=== PATIENT | female | born 1945 | race Asian ===

== ENCOUNTER 2017-02-25 10:34 | Observation (INO) | payer MEDICARE, OTHER ==
[~2017-02-25] VITALS: Ht 157.5 cm; Wt 56.7 kg
[~2017-02-25 10:34] MED LIST: AMLO10TA4 PO; ASPI-1159 PO; ATOR20TA65 PO; CALC667T5 PO; FERR-63 PO; FURO80TA3 PO; GLIP5TAB12 PO; HYDR-4135 PO; PROT40 PO; SENN1TAB86 PO
[2017-02-25] MEDS ORDERED: SODIUM CHLORIDE 0.9% 500 ML IV ONE (11:12)
[2017-02-25 11:51] LABS: BASOPHILS % 0.9 % (0.0-2.0); EOSINOPHILS % 0.9 % (0.0-5.0); HEMATOCRIT. 34.5 % (36.0-48.0); MEAN CORPUSCULAR HEMOGLOBIN 28.1 pg (28.0-32.0); MEAN CORPUSCULAR VOLUME 88.4 fL (81.0-99.0); MEAN PLATELET VOLUME 10.6 fl (7.4-10.4); MONOCYTES % 7.6 % (2.0-8.0); NEUTROPHILS % 77.6 % (40.0-76.0); PLATELET 204 x1000/uL (130-400); RED BLOOD CELL COUNT 3.91 mill/uL (4.2-5.4); RED CELL DISTRIBUTION WIDTH 14.5 % (11.6-14.6)
[2017-02-25 12:00] LABS: PARTIAL THROMBOPLASTIN TIME 28.9 sec (24.0-34.0); PROTHROMBIN TIME 10.1 sec
[2017-02-25 12:09] LABS: CARBON DIOXIDE 24 mEq/L (21-32); CHLORIDE 102 mEq/L (98-107); TROPONIN I 0.05 ng/mL (0.00-0.04)
[2017-02-25 14:30] VITALS: BP 190/121
[2017-02-25] MEDS ORDERED: IPRATROPIUM/ALBUTEROL 0.5-3(2.5)MG/3ML NEB INH PRN (14:30)
[2017-02-25] MEDS ORDERED: ACETAMINOPHEN 325MG TABLET PO PRN (14:30)
[2017-02-25] MEDS ORDERED: DEXTROSE 50% WATER 50ML SYRINGE IV PRN (14:30)
[2017-02-25] MEDS ORDERED: HYDROCODONE/ACETAMINOPHEN 5/325MG TABLET PO PRN (14:30)
[2017-02-25] MEDS ORDERED: ENOXAPARIN 40MG/0.4ML SYR SUBCUT SCH (14:30)
[2017-02-25] MEDS ORDERED: ONDANSETRON HCL 4MG/2ML VIAL IV PRN (14:30)
[2017-02-25] MEDS: ENOXAPARIN 30MG/0.3ML SYR SUBCUT SCH (15:00)
[2017-02-25 16:05] VITALS: BP 158/81
[2017-02-25] MEDS: BLOOD SUGAR DIAGNOSTIC STRIP TEST SCH ×2 (17:56→20:24)
[2017-02-25] MEDS: INSULIN LISPRO 100 UNITS/ML SUBCUT SCH ×2 (17:56→21:12)
[2017-02-25] MEDS: FOLIC ACID/VITAMIN B COMP W-C TABLET PO SCH (18:10)
[2017-02-25] MEDS: CALCIUM ACETATE 667MG CAPSULE PO SCH (18:10)
[2017-02-25 20:00] VITALS: BP 126/61
[2017-02-25 21:28] LABS: TROPONIN I 0.08 ng/mL (0.00-0.04)
[2017-02-26] VITALS (9 sets, daily range): BP systolic 121–191; BP diastolic 57–87
[2017-02-26] MEDS: CLONIDINE 0.1MG TABLET PO PRN ×2 (04:47→08:32)
[2017-02-26 06:49] LABS: T4 FREE 0.93 ng/dL (0.76-1.46); TROPONIN I 0.09 ng/mL (0.00-0.04)
[2017-02-26 07:20] LABS: HEMOGLOBIN. 10.3 g/dL (12.0-16.0); LYMPHOCYTES % 28.4 % (20.0-50.0); MEAN CORPUSCULAR HEMOGLOBIN 28.2 pg (28.0-32.0); MEAN PLATELET VOLUME 9.4 fl (7.4-10.4); NEUTROPHILS % 57.6 % (40.0-76.0); PLATELET 157 x1000/uL (130-400); RED BLOOD CELL COUNT 3.64 mill/uL (4.2-5.4); RED CELL DISTRIBUTION WIDTH 14.3 % (11.6-14.6)
[2017-02-26] MEDS: BLOOD SUGAR DIAGNOSTIC STRIP TEST SCH ×3 (07:40→17:48)
[2017-02-26] MEDS: INSULIN LISPRO 100 UNITS/ML SUBCUT SCH ×3 (07:54→17:48)
[2017-02-26] MEDS: FOLIC ACID/VITAMIN B COMP W-C TABLET PO SCH (08:32)
[2017-02-26] MEDS: CALCIUM ACETATE 667MG CAPSULE PO SCH ×3 (08:32→18:21)
[2017-02-26] MEDS ORDERED: HYDRALAZINE HCL 50MG TABLET PO PRN (12:15)
[2017-02-26] MEDS: ENOXAPARIN 30MG/0.3ML SYR SUBCUT SCH (15:00)
== END 2017-02-26 22:08 | disposition home or self-care (01) ==
LOC: EDSEX 10:35 → ER 10:35 → INTOOBSV 12:47 → 7WST 12:47 → EDBEDREQ 12:48 → ENRESERV 13:23
PROVIDERS: ADMIT Internal Medicine; ATTEND Internal Medicine
DX: I12.0 Hypertensive chronic kidney disease with stage 5 chronic kidney disease or end stage renal disease (principal); N18.6 End stage renal disease; I95.9 Hypotension, unspecified; D64.9 Anemia, unspecified; E11.22 Type 2 diabetes mellitus with diabetic chronic kidney disease; I25.10 Atherosclerotic heart disease of native coronary artery without angina pectoris; E78.5 Hyperlipidemia, unspecified; Z99.2 Dependence on renal dialysis; Z95.5 Presence of coronary angioplasty implant and graft; Z82.49 Family history of ischemic heart disease and other diseases of the circulatory system; Z79.899 Other long term (current) drug therapy; Z79.84 Long term (current) use of oral hypoglycemic drugs
CPT/HCPCS: 36415; 70450; 71010; 80048; 80053; 80061; 82550; 82962; 83605; 84439; 84443; 84484; 85025; 85610; 85730; 87040; 93005; 93880; 96360; 96372; 99285; G0378; J1815; J7040

== ENCOUNTER 2019-04-20 16:45 | Emergency (ER) | payer OTHER ==
[~2019-04-20] VITALS: Ht 147.3 cm; Wt 57.0 kg
[~2019-04-20 16:45] MED LIST changes: -ASPI-1159 PO; +ASPI-1393 PO; -CALC667T5 PO; +CALC667T6 PO
[2019-04-20 17:53] LABS: BASOPHILS % 1.1 % (0.0-2.0); EOSINOPHILS % 1.2 % (0.0-5.0); HEMATOCRIT. 34.8 % (36.0-48.0); HEMOGLOBIN. 11.2 g/dL (12.0-16.0); LYMPHOCYTES % 20.6 % (20.0-50.0); MEAN CORPUSCULAR VOLUME 89.8 fL (81.0-99.0); MEAN PLATELET VOLUME 9.4 fl (7.4-10.4); MONOCYTES % 11.9 % (2.0-8.0); NEUTROPHILS % 65.2 % (40.0-76.0); PLATELET 179 x1000/uL (130-400); RED BLOOD CELL COUNT 3.87 mill/uL (4.2-5.4); RED CELL DISTRIBUTION WIDTH 18.5 % (11.6-14.6)
[2019-04-20 17:56] LABS: CHLORIDE 102 mEq/L (98-107)
[2019-04-20 20:00] VITALS: BP 172/70
== END 2019-04-20 20:00 | disposition home or self-care (01) ==
LOC: ER 16:47
DX: S09.90XA Unspecified injury of head, initial encounter (principal); R55 Syncope and collapse; D64.9 Anemia, unspecified; E11.65 Type 2 diabetes mellitus with hyperglycemia; R79.89 Other specified abnormal findings of blood chemistry; E11.22 Type 2 diabetes mellitus with diabetic chronic kidney disease; I12.0 Hypertensive chronic kidney disease with stage 5 chronic kidney disease or end stage renal disease; N18.6 End stage renal disease; Z99.2 Dependence on renal dialysis; Z79.84 Long term (current) use of oral hypoglycemic drugs; Z79.899 Other long term (current) drug therapy; Z98.890 Other specified postprocedural states; W18.30XA Fall on same level, unspecified, initial encounter; Y93.89 Activity, other specified; Y92.89 Other specified places as the place of occurrence of the external cause; Y99.8 Other external cause status
CPT/HCPCS: 36415; 71045; 83880; 84484; 93005; 99284

== ENCOUNTER 2022-01-10 13:12 | Emergency (ER) | payer OTHER ==
[~2022-01-10] VITALS: Ht 162.6 cm; Wt 54.0 kg
[~2022-01-10 13:12] MED LIST changes: -ASPI-1393 PO; +ASPI-1497 PO; -CALC667T6 PO
[2022-01-10 15:19] LABS: BASOPHILS % 0.7 % (0.0-2.0); EOSINOPHILS % 0.7 % (0.0-5.0); HEMOGLOBIN. 10.3 g/dL (12.0-16.0); LYMPHOCYTES % 25.5 % (20.0-50.0); MEAN CORPUSCULAR HEMOGLOBIN 27.6 pg (28.0-32.0); MEAN CORPUSCULAR VOLUME 85.7 fL (81.0-99.0); MEAN PLATELET VOLUME 9.7 fl (7.4-10.4); MONOCYTES % 11.3 % (2.0-8.0); NEUTROPHILS % 61.8 % (40.0-76.0); PLATELET 132 x1000/uL (130-400); RED BLOOD CELL COUNT 3.74 mill/uL (4.2-5.4); RED CELL DISTRIBUTION WIDTH 16.5 % (11.6-14.6)
[2022-01-10 15:24] LABS: CHLORIDE 110 mEq/L (98-107)
[2022-01-10] MEDS ORDERED: AMLODIPINE 10MG TABLET PO ONE (16:00)
[2022-01-10 21:10] VITALS: BP 118/60
== END 2022-01-10 21:15 | disposition home or self-care (01) ==
LOC: ER 13:12
DX: R55 Syncope and collapse (principal); I95.3 Hypotension of hemodialysis; R51.9 Headache, unspecified; I12.0 Hypertensive chronic kidney disease with stage 5 chronic kidney disease or end stage renal disease; E11.22 Type 2 diabetes mellitus with diabetic chronic kidney disease; N18.6 End stage renal disease; D64.9 Anemia, unspecified; Z99.2 Dependence on renal dialysis; Z79.899 Other long term (current) drug therapy; Z79.82 Long term (current) use of aspirin; Z95.0 Presence of cardiac pacemaker
CPT/HCPCS: 36415; 71045; 80053; 83605; 84484; 85025; 99285

== ENCOUNTER 2022-10-10 13:09 | Inpatient (IN) | payer OTHER ==
[~2022-10-10] VITALS: Ht 157.5 cm; Wt 54.4 kg
[2022-10-10 15:18] LABS: BASOPHILS % 0.7 % (0.0-2.0); EOSINOPHILS % 0.3 % (0.0-5.0); HEMATOCRIT. 37.4 % (36.0-48.0); HEMOGLOBIN. 11.7 g/dL (12.0-16.0); LYMPHOCYTES % 13.8 % (20.0-50.0); MEAN CORPUSCULAR HEMOGLOBIN 27.7 pg (28.0-32.0); MEAN CORPUSCULAR VOLUME 88.7 fL (81.0-99.0); MEAN PLATELET VOLUME 9.8 fl (7.4-10.4); MONOCYTES % 12.5 % (2.0-8.0); NEUTROPHILS % 72.7 % (40.0-76.0); PLATELET 139 x1000/uL (130-400); RED BLOOD CELL COUNT 4.22 mill/uL (4.2-5.4); RED CELL DISTRIBUTION WIDTH 16.1 % (11.6-14.6)
[2022-10-10 15:25] LABS: CHLORIDE 108 mEq/L (98-107)
[2022-10-10 15:28] LABS: INR 0.9; PARTIAL THROMBOPLASTIN TIME 36.4 sec (23.4-31.0); PROTHROMBIN TIME 10.1 sec (9.6-11.0)
[2022-10-10] MEDS ORDERED: SODIUM POLYSTYRENE SULFONATE 15 G/60 ML BOT PO NR (16:15)
[2022-10-10] MEDS ORDERED: FUROSEMIDE 100MG/10ML VIAL IV NR (16:15)
[2022-10-10] MEDS ORDERED: DEXTROSE 50% WATER 50ML SYRINGE IV NR (16:15)
[2022-10-10] MEDS ORDERED: INSULIN REGULAR (HUMULIN R) 300UNITS/3ML VIAL IV NR (16:15)
[2022-10-10] MEDS ORDERED: SODIUM BICARBONATE 8.4% 1 MEQ/ML 50ML SYR IV NR (16:15)
[2022-10-10] MEDS ORDERED: CALCIUM GLUCONATE 100MG/ML 10ML VIAL IV NR (16:45)
[2022-10-10 18:40] LABS: HEPATITIS B SURFACE ANTIGEN NEGATIVE
[2022-10-10 19:00] VITALS: BP_SYST 94; BP_DIAS 46; BP_DIAS 55
[2022-10-10 20:00] VITALS: BP 90/45
[2022-10-10 20:56] VITALS: BP 86/45
[2022-10-10 22:01] VITALS: BP 111/55
[2022-10-11] VITALS (21 sets, daily range): BP systolic 93–171; BP diastolic 53–89
[2022-10-11] MEDS ORDERED: ONDANSETRON HCL 4MG/2ML INJ IV PRN (08:30)
[2022-10-11] MEDS ORDERED: ACETAMINOPHEN 325MG TABLET PO PRN (08:30)
[2022-10-11 08:56] LABS: BASOPHILS % 0.6 % (0.0-2.0); EOSINOPHILS % 0.5 % (0.0-5.0); HEMATOCRIT. 36.4 % (36.0-48.0); LYMPHOCYTES % 10.8 % (20.0-50.0); MEAN CORPUSCULAR HEMOGLOBIN 28.1 pg (28.0-32.0); MEAN PLATELET VOLUME 9.8 fl (7.4-10.4); MONOCYTES % 9.6 % (2.0-8.0); NEUTROPHILS % 78.5 % (40.0-76.0); PLATELET 140 x1000/uL (130-400); RED BLOOD CELL COUNT 4.28 mill/uL (4.2-5.4); RED CELL DISTRIBUTION WIDTH 16.2 % (11.6-14.6)
[2022-10-11] MEDS ORDERED: NIFEDIPINE XL 60MG TAB PO SCH (09:00)
[2022-10-11] MEDS ORDERED: ALTEPLASE 2MG/VIAL ITC NR (09:30)
[2022-10-11] MEDS ORDERED: FENTANYL CITRATE/PF 50MCG/ML 2ML VIAL ONE (09:53)
[2022-10-11] MEDS ORDERED: FENTANYL CITRATE/PF 50MCG/ML 2ML VIAL IV NR (09:53)
[2022-10-11] MEDS ORDERED: CEFAZOLIN 1000MG PREMIX 50 ML IV NR (10:00)
[2022-10-11] MEDS ORDERED: LIDOCAINE HCL 1% 10 MG/ML 10ML VIAL ONE (10:44)
[2022-10-11] MEDS ORDERED: HEPARIN 1000 UNITS/ML 10ML ONE (10:44)
[2022-10-11] MEDS ORDERED: IOHEXOL-300 100 ML BOTTLE ONE (10:44)
[2022-10-12] VITALS (15 sets, daily range): BP systolic 106–158; BP diastolic 50–80
[2022-10-12 16:58] LABS: BASOPHILS % 0.9 % (0.0-2.0); HEMATOCRIT. 33.1 % (36.0-48.0); HEMOGLOBIN. 10.8 g/dL (12.0-16.0); LYMPHOCYTES % 18.5 % (20.0-50.0); MEAN CORPUSCULAR VOLUME 85.8 fL (81.0-99.0); MEAN PLATELET VOLUME 10.2 fl (7.4-10.4); MONOCYTES % 14.4 % (2.0-8.0); NEUTROPHILS % 65.2 % (40.0-76.0); PLATELET 147 x1000/uL (130-400); RED BLOOD CELL COUNT 3.86 mill/uL (4.2-5.4); RED CELL DISTRIBUTION WIDTH 16.2 % (11.6-14.6)
== END 2022-10-12 22:15 | disposition home or self-care (01) | DRG 252 ==
LOC: ER 13:09 → MICUSO 18:16 → EDBEDREQ 18:19 → EDBEDREQTM 18:19 → 7EST 10-11 10:16
PROVIDERS: ADMIT Internal Medicine; ATTEND Internal Medicine
PROC: 06HY33Z Insertion of Infusion Device into Lower Vein, Percutaneous Approach (ICD-10-PCS; principal; 2022-10-10)
PROC: B54BZZA Ultrasonography of Right Lower Extremity Veins, Guidance (ICD-10-PCS; 2022-10-10)
PROC: 5A1D70Z Performance of Urinary Filtration, Intermittent, Less than 6 Hours Per Day (ICD-10-PCS; 2022-10-10)
PROC: 03783ZZ Dilation of Left Brachial Artery, Percutaneous Approach (ICD-10-PCS; 2022-10-11)
PROC: 057F3ZZ Dilation of Left Cephalic Vein, Percutaneous Approach (ICD-10-PCS; 2022-10-11)
PROC: B51W1ZZ Fluoroscopy of Dialysis Shunt/Fistula using Low Osmolar Contrast (ICD-10-PCS; 2022-10-11)
PROC: B5181ZZ Fluoroscopy of Superior Vena Cava using Low Osmolar Contrast (ICD-10-PCS; 2022-10-11)
PROC: 5A1D70Z Performance of Urinary Filtration, Intermittent, Less than 6 Hours Per Day (ICD-10-PCS; 2022-10-12)
DX: T82.868A Thrombosis due to vascular prosthetic devices, implants and grafts, initial encounter (principal); N18.6 End stage renal disease; E44.1 Mild protein-calorie malnutrition; E87.20 Acidosis, unspecified; E87.1 Hypo-osmolality and hyponatremia; J98.11 Atelectasis; I12.0 Hypertensive chronic kidney disease with stage 5 chronic kidney disease or end stage renal disease; G89.29 Other chronic pain; E87.5 Hyperkalemia; R79.89 Other specified abnormal findings of blood chemistry; Z20.822 Contact with and (suspected) exposure to COVID-19; E11.22 Type 2 diabetes mellitus with diabetic chronic kidney disease; Z99.2 Dependence on renal dialysis; Z95.0 Presence of cardiac pacemaker; Z91.15 Patient's noncompliance with renal dialysis; Z79.899 Other long term (current) drug therapy; Z68.21 Body mass index [BMI] 21.0-21.9, adult; Y71.2 Prosthetic and other implants, materials and accessory cardiovascular devices associated with adverse incidents; Y92.89 Other specified places as the place of occurrence of the external cause
CPT/HCPCS: 36415; 36905; 71045; 76937; 80048; 80053; 82962; 85025; 86705; 86709; 86803; 87340; 87426; 90935; 93005; 99152; 99153; 99291; C1725; C1766; C1769; C1893; J0610; J0690; J1644; J1815; J1940; J2997; J3010; J3490; Q9967; G0500

== ENCOUNTER 2024-02-24 14:27 | Inpatient (IN) | payer OTHER, MEDICARE ==
[~2024-02-24] VITALS: Ht 157.5 cm; Wt 63.0 kg
[~2024-02-24 14:27] MED LIST changes: -GLIP5TAB12 PO; +GLIP5TAB22 PO; -HYDR-4135 PO; +HYDR50TA40 PO
[2024-02-24] MEDS: CLONIDINE 0.2MG TABLET PO ONE (16:30)
[2024-02-24 16:43] LABS: DIFFERENTIAL COMMENT 0; EOSINOPHILS % 1.2 % (0.0-5.0); HEMATOCRIT. 27.4 % (36.0-48.0); HEMOGLOBIN. 8.9 g/dL (12.0-16.0); MEAN CORPUSCULAR HEMOGLOBIN 28.2 pg (28.0-32.0); MEAN CORPUSCULAR HGB CONC 32.5 g/dL (31.0-37.0); MEAN CORPUSCULAR VOLUME 86.7 fL (81.0-99.0); MEAN PLATELET VOLUME 8.3 fl (7.4-10.4); NEUTROPHILS % 70.8 % (40.0-76.0); PLATELET 203 x1000/uL (130-400); RED BLOOD CELL COUNT 3.17 mill/uL (4.2-5.4); RED CELL DISTRIBUTION WIDTH 16.4 % (11.6-14.6); WHITE BLOOD COUNT 4.8 x1000/uL (4.5-11.0)
[2024-02-24 16:53] LABS: POTASSIUM 3.9 mEq/L (3.5-5.1)
[2024-02-24 16:56] LABS: INR 0.9; PARTIAL THROMBOPLASTIN TIME 29.3 sec (23.4-31.0); PROTHROMBIN TIME 10.4 sec (9.6-11.0)
[2024-02-24 17:02] LABS: CREATININE 2.7 mg/dL (0.6-1.0)
[2024-02-25] VITALS (8 sets, daily range): BP systolic 99–162; BP diastolic 38–74; PULSE 64–92; RESP 16–20; TEMP 97.2–100.6
[2024-02-25] MEDS ORDERED: CALC667C MT (08:54)
[2024-02-25 10:07] LABS: HEMATOCRIT 24.7 % (36.0-48.0); HEMOGLOBIN 8.1 g/dL (12.0-16.0); MEAN CORPUSCULAR HEMOGLOBIN 28.3 pg (28.0-32.0); MEAN CORPUSCULAR VOLUME 85.6 fL (81.0-99.0); PLATELET 183 x1000/uL (130-400); RED BLOOD CELL COUNT 2.88 mill/uL (4.2-5.4)
[2024-02-25 10:19] LABS: CARBON DIOXIDE 31 mEq/L (21-32); CHLORIDE 99 mEq/L (98-107); POTASSIUM 4.2 mEq/L (3.5-5.1); SODIUM 136 mEq/L (136-145)
[2024-02-25 10:20] LABS: CALCIUM 8.2 mg/dL (8.7-10.4)
[2024-02-25 10:25] LABS: GLUCOSE 104 mg/dL (70-105); UREA NITROGEN BLOOD 22 mg/dL (9-23)
[2024-02-25 10:26] LABS: ALANINE AMINOTRANSFERASE < 7 IU/L (10-49); ASPARTATE AMINOTRANSFERASE 17 IU/L (<34)
[2024-02-25 10:27] LABS: ALBUMIN 3.5 g/dL (3.2-4.8); BILIRUBIN TOTAL 0.3 mg/dL (0.1-1.0); PROTEIN TOTAL 6.3 g/dL (6.0-8.3)
[2024-02-25 10:40] LABS: CREATININE 4.3 mg/dL (0.6-1.0)
[2024-02-25] MEDS ORDERED: DEXTROSE 50% WATER 50ML SYRINGE IV PRN (12:15)
[2024-02-25] MEDS ORDERED: ACETAMINOPHEN 325MG TABLET PO PRN ×2 (12:15)
[2024-02-25] MEDS ORDERED: IPRATROPIUM/ALBUTEROL 0.5-3(2.5)MG/3ML NEB HHN PRN (12:15)
[2024-02-25] MEDS ORDERED: CLONIDINE 0.1MG TABLET PO PRN (12:15)
[2024-02-25] MEDS ORDERED: DOCUSATE SODIUM 100MG CAPSULE PO PRN (12:15)
[2024-02-25] MEDS ORDERED: ONDANSETRON HCL 4MG/2ML INJ IV PRN (12:15)
[2024-02-25] MEDS ORDERED: HYDRALAZINE 20MG/ML VIAL IV PRN (12:15)
[2024-02-25] MEDS: HYDRALAZINE HCL 50MG TABLET PO SCH (13:29)
[2024-02-25] MEDS: BLOOD SUGAR DIAGNOSTIC STRIP TEST SCH (15:57)
[2024-02-25] MEDS: INSULIN LISPRO 100 UNITS/ML SUBCUT SCH (17:10)
[2024-02-25 17:20] LABS: CREATINE KINASE MB FRACTION 1.7 ng/mL (0.5-3.6)
[2024-02-25 17:21] LABS: CREATINE KINASE 47 IU/L (34-145)
[2024-02-25 17:29] LABS: TROPONIN I HIGH SENSITIVITY 47 ng/L (3.0-34)
[2024-02-25 17:37] LABS: HEPATITIS B SURFACE ANTIGEN NEGATIVE (Negative)
[2024-02-25 17:57] LABS: HEPATITIS A AB IGM NEGATIVE (Negative)
[2024-02-25 17:58] LABS: HEPATITIS B CORE AB IGM NEGATIVE (Negative); HEPATITIS C AB NON REACTIVE (Neg) (Negative)
[2024-02-25] MEDS: EPOETIN ALFA 4000UNITS/ML VIAL SUBCUT SCH (21:00)
[2024-02-25] MEDS ORDERED: EPOETIN ALFA-EPBX 4,000 UNIT/ML VIAL SUBCUT SCH (21:00)
[2024-02-26] VITALS (21 sets, daily range): BP systolic 96–189; BP diastolic 44–66; PULSE 66–82; RESP 14–18; TEMP 97–98; O2SAT 97
[2024-02-26 07:16] LABS: HEMATOCRIT. 23.8 % (36.0-48.0); HEMOGLOBIN. 7.9 g/dL (12.0-16.0); MEAN CORPUSCULAR HEMOGLOBIN 28.5 pg (28.0-32.0); MEAN CORPUSCULAR VOLUME 86.3 fL (81.0-99.0); MEAN PLATELET VOLUME 8.9 fl (7.4-10.4); PLATELET 185 x1000/uL (130-400); RED BLOOD CELL COUNT 2.76 mill/uL (4.2-5.4); RED CELL DISTRIBUTION WIDTH 17.3 % (11.6-14.6); WHITE BLOOD COUNT 2.9 x1000/uL (4.5-11.0)
[2024-02-26] MEDS ORDERED: LIDOCAINE HCL 1% 10 MG/ML 10ML VIAL ONE (07:21)
[2024-02-26] MEDS ORDERED: IOHEXOL-300 100 ML BOTTLE ONE (07:22)
[2024-02-26 07:35] LABS: POTASSIUM 4.7 mEq/L (3.5-5.1)
[2024-02-26 07:36] LABS: CALCIUM 7.8 mg/dL (8.7-10.4)
[2024-02-26 07:53] LABS: CREATININE 5.7 mg/dL (0.6-1.0)
[2024-02-26 07:55] LABS: DIFFERENTIAL COMMENT 1
[2024-02-26] MEDS ORDERED: FENTANYL CITRATE/PF 50MCG/ML 2ML VIAL ONE (07:58)
[2024-02-26] MEDS: FUROSEMIDE 20MG TABLET PO SCH (09:18)
[2024-02-26 09:57] LABS: ANISOCYTOSIS 1+; HYPOCHROMASIA 2+
[2024-02-26 16:30] LABS: PLATELET ESTIMATE NORMAL
== END 2024-02-26 19:48 | disposition home or self-care (01) | DRG 314 ==
LOC: ER 14:27 → EDBEDREQ 17:18 → 3WST 18:31 → EDBEDREQ 18:43 → EDBEDREQTM 18:43 → 5WST 23:33 → 7EST 23:52
PROVIDERS: ADMIT Internal Medicine; ATTEND Internal Medicine
PROC: B51W1ZZ Fluoroscopy of Dialysis Shunt/Fistula using Low Osmolar Contrast (ICD-10-PCS; principal; 2024-02-26)
PROC: B51N1ZZ Fluoroscopy of Left Upper Extremity Veins using Low Osmolar Contrast (ICD-10-PCS; 2024-02-26)
PROC: B5171ZZ Fluoroscopy of Left Subclavian Vein using Low Osmolar Contrast (ICD-10-PCS; 2024-02-26)
PROC: B31J1ZZ Fluoroscopy of Left Upper Extremity Arteries using Low Osmolar Contrast (ICD-10-PCS; 2024-02-26)
PROC: 5A1D70Z Performance of Urinary Filtration, Intermittent, Less than 6 Hours Per Day (ICD-10-PCS; 2024-02-26)
DX: T82.838A Hemorrhage due to vascular prosthetic devices, implants and grafts, initial encounter (principal); N18.6 End stage renal disease; I12.0 Hypertensive chronic kidney disease with stage 5 chronic kidney disease or end stage renal disease; D62 Acute posthemorrhagic anemia; J98.11 Atelectasis; Z95.0 Presence of cardiac pacemaker; E11.22 Type 2 diabetes mellitus with diabetic chronic kidney disease; G89.29 Other chronic pain; I51.7 Cardiomegaly; Z99.2 Dependence on renal dialysis; Y84.1 Kidney dialysis as the cause of abnormal reaction of the patient, or of later complication, without mention of misadventure at the time of the procedure; Y92.89 Other specified places as the place of occurrence of the external cause
CPT/HCPCS: 36415; 36901; 71045; 80048; 80053; 82550; 82553; 82962; 83036; 83605; 84145; 84484; 85025; 85027; 86705; 86709; 86850; 86900; 87340; 90935; 93005; 99285; C1766; C1769; C1887; J0885; J1644; J3010; J3490; Q9967